=== PATIENT | female | born 1950 | race Caucasian/White ===

== ENCOUNTER 2018-11-07 18:27 | Inpatient (IN) | payer OTHER ==
[~2018-11-07] VITALS: Ht 167.6 cm; Wt 126.8 kg
--- NOTE | ~2018-11-07 | H ---
[address] [address] HISTORY AND PHYSICAL Name: SHERYL MANLEY V Room: [address]#: [id number] Admission: 11/07/18 Attend Phys: Michael Garg MD Discharge: 11/08/18 Date of : 46 Report #: [id number] THIS REPORT FOR: //name// Patient was here less than 24 hour please refer to the final summation note. By: 0655Medical Records Staff FRED /EMELY
[2018-11-07 18:57] LABS: HEMATOCRIT 42.8 % (37.0-47.0); HEMOGLOBIN 14.3 gm/dL (12.0-15.0); MCH 29.6 pg (26.0-34.0); MCHC 33.3 g/dL (28.0-37.0); MPV 10.7 fl. (7.2-11.1); PLATELET COUNT* 276 thou/uL (150-400); RBC 4.81 mil/uL (4.20-5.00); RDW-CV 13.5 % (10.5-14.5); WBC 18.1 thou/uL (4.0-11.0)
[2018-11-07 19:03] LABS: POC CA IONIZED 4.8 mg/dL (4.5-5.3); POC CREATININE 1.3 mg/dL (0.6-1.3); POC HEMOGLOBIN 14.6 g/dL (12.0-17.0); POC POTASSIUM 4.1 mmol/L (3.5-4.9)
[2018-11-07 19:04] LABS: APTT 23.9 Seconds (25.0-31.3); PROTIME 9.9 Seconds (9.20-11.50)
[2018-11-07 19:07] LABS: ALBUMIN 2.8 g/dL (3.4-5.0); CALCIUM 9.5 mg/dL (8.5-10.1); CREATININE 1.4 mg/dL (0.6-1.3); POTASSIUM 4.1 mmol/L (3.5-5.1); TOTAL BILIRUBIN 0.2 mg/dL (<0.1-1.0); TOTAL PROTEIN 7.3 g/dL (6.4-8.2)
[2018-11-07 19:21] VITALS: BP 188/82
[2018-11-07 22:03] LABS: BE -2.1 mmol/L (-2 to +3); PCO2 45.5 mmHg (35.0-45.0); PO2 101.8 mmHg (75.0-100.0); pH 7.338 (7.340-7.450)
[2018-11-07 22:06] LABS: ABSOLUTE BASOPHILS 0.1 thou/uL (0.0-0.2); ABSOLUTE EOSINOPHILS 0.6 thou/uL (0.0-0.7); ABSOLUTE LYMPHOCYTES 8.5 thou/uL (0.8-5.3); ABSOLUTE MONOCYTES 1.4 thou/uL (0.0-1.2); ABSOLUTE NEUTROPHILS 7.4 thou/uL (1.6-8.1); BASOPHILS 0.8 %; EOSINOPHILS 3.5 %; LYMPHOCYTES 47.1 %; MONOCYTES 7.6 %
[2018-11-07 22:35] VITALS: BP 00/00
--- NOTE | 2018-11-07 22:35 | NUR ---
PLEASE SEE CODE STROKE FORMS AND TPA FORMS FOR VITAL SIGNS AND CHARTING
[2018-11-07 23:13] VITALS: BP 147/84
[2018-11-07 23:59] VITALS: BP 135/63
[2018-11-08 00:16] VITALS: BP 130/64
--- NOTE | 2018-11-08 01:37 | NUR ---
Pt admitted to ICU from ED following CT at 2305. Pt admitted with stroke-like symptoms. EEG in ED shows continuous seizure activity. Pt's son (Keyshawn) and dtr (Aaliyah) state she has history of brain aneurysm with clip 20 years ago, and seizures 5 years ago. Keyshawn and Aaliyah state that the symptoms pt exhibited with previous seizure is very similar to the symptoms she experienced with this admission. Pt unable to communicate purposefully, and does not follow commands. Pt able to move all extremities spontaneously. Pt given lorazepam prior to CT, and pt was sedated and sleeping upon arrival to ICU. Pt gets agitated when BP taken, and getting BP very difficult due to arm motion. Cuff moved to leg, but after two successful takes pt became agitated when cuff inflated on leg as well. Pt became combative at times, yelling and thrashing. Report called to Darline at [facility] on the [place], and EMS arrived to take pt to [facility]. 2 bags of FFP initiated prior to transfer, and Dilantin IVPB finishing as well. Pt dc'd from unit per EMS via cart.
--- NOTE | 2018-11-08 11:34 | EKG ---
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[place] : 1950 Requested By: Gurdeep Rosario Order Number: [id number] MD: Ed Campos Measurements Intervals Preemption Rate: 95 P: 59 CO: 185 QRS: 1 QRSD: 89 T: 10 QT: 385 QTc: 484 Interpretive Statements Sinus rhythm Borderline T wave abnormalities Borderline prolonged QT interval Compared to ECG 10/26/2007 08:06:09 T-wave abnormality now present Sinus tachycardia no longer present Electronically Signed On 11-08-2018 11:34:40 [employer] by Ed Campos [email or web address] <ELECTRONICALLY SIGNED> By: Ed Campos MD, FAC 11/08/18 1134 1844 1844 Ed Campos MD, [facility] /EPI
--- NOTE | 2018-11-10 13:47 | EEG ---
[address] [address] EEG STUDY REPORT Name: VINEETSHERYL Markos Room: [address] IN M.R.#: [id number] Admission: 11/07/18 Attend Phys: Michael Garg MD Discharge: 11/08/18 Date of : 46 Report #: [id number] THIS REPORT FOR: //name// CC: DELORES physician/PCP Michael Garg DATE OF SERVICE: 11/07/2018 REFERRING PHYSICIANS: Dr. Rosario and Dr. Cleary This patient's study was done to evaluate the patient for seizure disorder. EEG was done by placing the electrode by standard 10-20 system of electrode placement. Both referential and sequential montages were used for recording. The activity is asymmetrical, but is abnormal on both sides. On the right side, the background activity is about 7-8 Hz and 30 microvolt. On the left side, almost continuous epileptiform activity was noticed arising from predominantly the left temporal occipital area. EEG is slow on both sides. Photic stimulation was unremarkable. IMPRESSION: This is an abnormal EEG because it demonstrates almost continuous epileptiform activity arising from the left temporal occipital area. EEG is also slow on the left side and because of that a left-sided lesion should be excluded. EEG also is slow in generalized fashion and that is a nonspecific finding, which can occur with encephalopathy, effect of psychotropic medication, etc. The findings were called to the referring physician, Dr. Cleary. <ELECTRONICALLY SIGNED> By: Onel Woo MD 11/10/18 1347 2213 [id number] Woo MD /nt
== END 2018-11-08 01:10 | disposition short-term general hospital (02) | DRG 101 ==
LOC: M.ERS 18:27 → M.TBA-ER 21:55 → M.ICU 22:12
PROVIDERS: Emergency Medicine; Personal Emergency Response Attendant; ADMIT Family Medicine
DX: G40.909 Epilepsy, unspecified, not intractable, without status epilepticus (principal); I10 Essential (primary) hypertension; R29.712 NIHSS score 12; E11.9 Type 2 diabetes mellitus without complications; Z91.041 Radiographic dye allergy status; Z91.048 Other nonmedicinal substance allergy status; Z90.49 Acquired absence of other specified parts of digestive tract